=== PATIENT | female | born 1975 | race Caucasian/White ===

== ENCOUNTER 2019-02-23 09:37 | Outpatient (CLI) | payer BC, OTHER ==
[~2019-02-23 09:37] MED LIST: GADOTERATE 10 MMOL/20 ML VIAL ONE
== END 2019-02-23 23:59 | disposition home or self-care (01) ==
LOC: CFH 09:37
PROVIDERS: ATTEND Family Medicine
DX: N63.23 Unspecified lump in the left breast, lower outer quadrant (principal); Z85.3 Personal history of malignant neoplasm of breast; Z92.21 Personal history of antineoplastic chemotherapy; Z92.3 Personal history of irradiation
CPT/HCPCS: 76642; 77049; 77066; A9575; C8937; G0279; C8908

== ENCOUNTER 2019-03-01 09:28 | Outpatient (CLI) | payer BC, OTHER ==
[2019-03-01] MEDS ORDERED: LIDOCAINE 1%, 20ML ONE (09:30)
[2019-03-01] MEDS ORDERED: SODIUM BICARBONATE 4.2%, 5ML ONE (09:30)
[2019-03-01] MEDS ORDERED: LIDOCAINE 1%-EPI 1:100K, 20ML ONE (09:30)
== END 2019-03-01 23:59 | disposition home or self-care (01) ==
LOC: CFH 09:28
PROVIDERS: ATTEND Family Medicine
DX: N63.21 Unspecified lump in the left breast, upper outer quadrant (principal); C50.412 Malignant neoplasm of upper-outer quadrant of left female breast; C50.812 Malignant neoplasm of overlapping sites of left female breast; Z17.1 Estrogen receptor negative status [ER-]
CPT/HCPCS: 19083; 19084; 77065; 88305; 88333; 88360; J3490; 19285

== ENCOUNTER 2019-03-22 13:13 | Outpatient (CLI) | payer BC, OTHER ==
[2019-03-22] MEDS ORDERED: OMNIPAQUE 350 MG/ML, 100ML BOTTLE ONE (15:07)
== END 2019-03-22 23:59 | disposition home or self-care (01) ==
LOC: RAD 13:13
PROVIDERS: ATTEND Surgery
DX: C50.912 Malignant neoplasm of unspecified site of left female breast (principal); M47.897 Other spondylosis, lumbosacral region; N85.2 Hypertrophy of uterus; N83.292 Other ovarian cyst, left side
CPT/HCPCS: 71260; 74177; Q9967

== ENCOUNTER 2019-03-24 06:07 | Day surgery (SDC) | payer BC, OTHER ==
[~2019-03-24] VITALS: Ht 175.3 cm; Wt 77.0 kg
[2019-03-24 06:24] VITALS: BP 120/87
[2019-03-24] MEDS ORDERED: BUPIVACAINE/PF 0.5% ONE (07:08)
[2019-03-24] MEDS ORDERED: HEPARIN 1,000 UNITS/ML, 10ML ONE (07:08)
[2019-03-24] MEDS ORDERED: EPINEPHRINE 1 MG/ML, 1ML ONE (07:08)
[2019-03-24] MEDS ORDERED: PROPOFOL 10 MG/ML, 20ML ONE (07:32)
[2019-03-24] MEDS ORDERED: MIDAZOLAM 1 MG/ML, 2ML ONE (07:32)
[2019-03-24] MEDS ORDERED: FENTANYL PF 250 MCG/5ML ONE (07:32)
[2019-03-24] MEDS ORDERED: ONDANSETRON 2MG/ML, 2ML ONE (07:33)
[2019-03-24] MEDS ORDERED: DEXAMETHASONE 4 MG/ML, 1ML ONE (07:33)
[2019-03-24 07:44] LABS: INTERNATIONAL NORMALIZED RATIO 0.99 (0.93-1.1); PROTHROMBIN TIME 10.4 Seconds (9.6-11.5)
[2019-03-24] MEDS ORDERED: KETOROLAC 30 MG/1 ML ONE (07:49)
[2019-03-24] MEDS ORDERED: FENTANYL PF 100 MCG/2ML IV PRN (08:00)
[2019-03-24] MEDS ORDERED: ACETAMINOPHEN 325 MG TABLET PO PRN (08:00)
[2019-03-24] MEDS ORDERED: HYDROmorphone 2 MG/ML, 1ML IVPush PRN (08:00)
[2019-03-24] MEDS ORDERED: LABETALOL 5MG/ML, 20ML IV PRN (08:00)
[2019-03-24] MEDS ORDERED: OXYcodone 5 MG/5 ML ORAL.SOL UDC PO PRN (08:00)
[2019-03-24] MEDS ORDERED: PROMETHAZINE 25 MG/ML, 1ML IV PRN (08:00)
[2019-03-24] MEDS ORDERED: hydrALAzine 20 MG/ML, 1ML IV PRN (08:00)
[2019-03-24] MEDS ORDERED: ONDANSETRON 2MG/ML, 2ML IV PRN (08:00)
[2019-03-24] MEDS ORDERED: CEFAZOLIN 1,000 MG ONE (08:01)
[2019-03-24] MEDS ORDERED: BUPIVACAINE/PF-EPI 0.5% 1:200K INFIL ONE (08:16)
[2019-03-24] MEDS ORDERED: BACITRACIN ZINC OINT 500U/GM, 0.9 GM ONE (08:41)
[2019-03-24] MEDS ORDERED: MEPERIDINE/PF 25MG/ML,1ML ONE (08:56)
[2019-03-24] MEDS ORDERED: LACTATED RINGERS 1,000 ML IV SCH (08:59)
[2019-03-24] MEDS ORDERED: ONDANSETRON 2MG/ML, 2ML IVPush PRN (09:00)
[2019-03-24] MEDS ORDERED: MORPHINE SULFATE 4 MG/ML, 1ML IVPush PRN (09:00)
[2019-03-24] MEDS ORDERED: MEPERIDINE/PF 25MG/ML,1ML IVPush PRN (09:30)
[2019-03-24] MEDS ORDERED: OXYC-302 PO (10:13)
== END 2019-03-24 12:18 | disposition home or self-care (01) ==
LOC: OUT 06:07 → 4NE 06:15 → OUT 12:18
PROVIDERS: ATTEND Surgery
DX: Z45.2 Encounter for adjustment and management of vascular access device (principal); C50.912 Malignant neoplasm of unspecified site of left female breast; Z79.01 Long term (current) use of anticoagulants; Z88.1 Allergy status to other antibiotic agents; Z91.040 Latex allergy status
CPT/HCPCS: 36415; 36561; 71045; 77001; 84703; 85610; C1788; J0171; J0690; J1100; J1644; J1885; J2175; J2250; J2405; J2704; J3010; 76000; G0378

== ENCOUNTER → 2019-03-26 | Outpatient (CLI) | payer BC, OTHER ==
[~2019-03-26] MED LIST changes: -GADOTERATE 10 MMOL/20 ML VIAL ONE; +OXYC-302 PO
== END | disposition home or self-care (01) ==
LOC: RAD 10:20
PROVIDERS: ATTEND Surgery
DX: C50.912 Malignant neoplasm of unspecified site of left female breast (principal); C40.22 Malignant neoplasm of long bones of left lower limb
CPT/HCPCS: 78306; A9503; J1642

== ENCOUNTER 2019-03-27 11:24 | Outpatient (CLI) | payer BC, OTHER ==
[2019-03-27] MEDS ORDERED: GADOTERATE 7.5 MMOL/15 ML VIAL ONE (12:32)
== END 2019-03-27 23:59 | disposition home or self-care (01) ==
LOC: CFH 11:24
PROVIDERS: ATTEND Internal Medicine Hematology & Oncology
DX: C50.912 Malignant neoplasm of unspecified site of left female breast (principal)
CPT/HCPCS: 70553; A9575

== ENCOUNTER 2019-03-28 06:56 | Outpatient (CLI) | payer BC, OTHER | END 2019-03-28 23:59 | disposition home or self-care (01) | LOC: CFH 06:56 | PROVIDERS: ATTEND Internal Medicine Hematology & Oncology | DX: I34.0 Nonrheumatic mitral (valve) insufficiency (principal); C34.32 Malignant neoplasm of lower lobe, left bronchus or lung; C50.912 Malignant neoplasm of unspecified site of left female breast; C78.02 Secondary malignant neoplasm of left lung; C78.01 Secondary malignant neoplasm of right lung | CPT/HCPCS: 78815; 93306; 93356; A9552 ==

== ENCOUNTER 2019-03-29 06:59 | Day surgery (SDC) | payer BC, OTHER ==
[~2019-03-29] VITALS: Ht 175.3 cm; Wt 79.4 kg
[2019-03-29] MEDS ORDERED: SODIUM CHLORIDE 0.9% 1,000 ML IV SCH (07:48)
[2019-03-29 08:04] VITALS: BP 130/88
[2019-03-29] MEDS ORDERED: PLEASE ENTER HEIGHT AND WEIGHT MC SCH (08:30)
[2019-03-29] MEDS ORDERED: NALOXONE 1 MG/ML, 2ML ONE (08:33)
[2019-03-29] MEDS ORDERED: FLUMAZENIL 0.1 MG/1 ML, 5ML ONE (08:33)
[2019-03-29] MEDS ORDERED: MIDAZOLAM 1 MG/ML, 5ML ONE (08:33)
[2019-03-29] MEDS ORDERED: FENTANYL PF 100 MCG/2ML ONE ×2 (08:33)
== END 2019-03-29 14:45 | disposition home or self-care (01) ==
LOC: OUT 06:59
PROVIDERS: ATTEND Internal Medicine Hematology & Oncology
DX: R91.8 Other nonspecific abnormal finding of lung field (principal); C50.912 Malignant neoplasm of unspecified site of left female breast; C78.02 Secondary malignant neoplasm of left lung; Z17.1 Estrogen receptor negative status [ER-]; Z88.2 Allergy status to sulfonamides; Z91.040 Latex allergy status
CPT/HCPCS: 32405; 71045; 77012; 88305; 88341; 88342; 88360; 99156; 99157; C2613; J2250; J3010; J2310

== ENCOUNTER 2019-05-11 11:04 | Outpatient (CLI) | payer BC ==
[2019-05-11] MEDS ORDERED: OMNIPAQUE 350 MG/ML, 75ML BOTTLE ONE (15:44)
== END 2019-05-11 23:59 | disposition home or self-care (01) ==
LOC: CFH 11:04
PROVIDERS: ATTEND Internal Medicine Hematology & Oncology
DX: C50.912 Malignant neoplasm of unspecified site of left female breast (principal); K44.9 Diaphragmatic hernia without obstruction or gangrene
CPT/HCPCS: 71260; Q9967

== ENCOUNTER → 2019-05-16 | Outpatient (CLI) | payer BC | END | disposition home or self-care (01) | LOC: CFH 07:37 | PROVIDERS: ATTEND Internal Medicine Hematology & Oncology | DX: D25.1 Intramural leiomyoma of uterus (principal); C50.812 Malignant neoplasm of overlapping sites of left female breast | CPT/HCPCS: 76830 ==

== ENCOUNTER → 2019-05-30 | Outpatient (CLI) | payer BC ==
[~2019-05-30] MED LIST changes: +OMNIPAQUE 350 MG/ML, 100ML BOTTLE ONE
== END | disposition home or self-care (01) ==
LOC: CFH 08:04
PROVIDERS: ATTEND Internal Medicine Hematology & Oncology
DX: C50.812 Malignant neoplasm of overlapping sites of left female breast (principal)
CPT/HCPCS: 72193; Q9967

== ENCOUNTER → 2019-06-25 | Outpatient (CLI) | payer BC, OTHER ==
[~2019-06-25] MED LIST changes: -OMNIPAQUE 350 MG/ML, 100ML BOTTLE ONE
== END | disposition home or self-care (01) ==
LOC: CVU 08:33
PROVIDERS: ATTEND Internal Medicine Hematology & Oncology
DX: C50.812 Malignant neoplasm of overlapping sites of left female breast (principal); I51.89 Other ill-defined heart diseases
CPT/HCPCS: 93308; 93321; 93325; 93356

== ENCOUNTER 2019-08-07 08:43 | Outpatient (CLI) | payer BC, OTHER ==
[2019-08-07] MEDS ORDERED: GADOTERATE 10 MMOL/20 ML VIAL ONE (10:37)
[2019-08-07] MEDS ORDERED: OMNIPAQUE 350 MG/ML, 100ML BOTTLE ONE (14:54)
== END 2019-08-07 23:59 | disposition home or self-care (01) ==
LOC: CFH 08:43
PROVIDERS: ATTEND Internal Medicine Hematology & Oncology
DX: C50.812 Malignant neoplasm of overlapping sites of left female breast (principal)
CPT/HCPCS: 71260; 74177; 77049; A9575; Q9967; C8908; C8937